=== PATIENT | male | born 1995 ===

== ENCOUNTER 2020-05-27 19:37 | Emergency (ER) | payer SELFPAY ==
[~2020-05-27] VITALS: Ht 165 cm; Wt 74.8 kg
[2020-05-27] MEDS ORDERED: TETANUS,DIPTH,PERTUSS P/F (BOOSTRIX) 0.5 ML VIAL IM ONE (19:43)
[2020-05-27 19:45] VITALS: BP 119/79
[2020-05-27] MEDS: TETANUS,DIPTH,PERTUSS P/F (BOOSTRIX) 0.5 ML VIAL IM ONE ×2 (19:50→20:00)
--- NOTE | 2020-05-27 19:51 | NUR ---
PT REFUSED TETNUS SHOT.
--- NOTE | 2020-05-27 20:02 | ED Upper Extremity ---
General Chief Complaint: Laceration Stated Complaint: LEFT HAND LACERATION Source: patient Exam Limitations: no limitations History of Present Illness Date Seen by Provider: May 27, 2020 Time Seen by Provider: 19:59 Initial Comments To ER with a laceration to the dorsal aspect of the left hand from a knife at home just prior to arrival. He cannot recall his last tetanus vaccine but he does not want one. Onset: just prior to arrival Severity: mild Pain/Injury Location: left 2nd finger Modifying Factors: Worse With Movement Allergies and Home Medications Allergies Coded Allergies: No Known Drug Allergies (Unverified , 05/27/20) Patient Home Medication List Home Medication List Reviewed: Yes Review of Systems Constitutional: see HPI EENTM: see HPI Respiratory: no symptoms reported Cardiovascular: no symptoms reported Genitourinary: no symptoms reported Musculoskeletal: see HPI Skin: see HPI Past Unvwsdc-Ztposk-Pwsskj Hx Patient Social History Alcohol Use: Occasionally Uses Alcohol Beverage of Choice: Beer Recreational Drug Use: No Smoking Status: Light Tobacco Smoker Type Used: Cigarettes 2nd Hand Smoke Exposure: Yes Recent Hopitalizations: No Physical Abuse: No Sexual Abuse: No Mistreated: No Fear: No Seasonal Allergies Seasonal Allergies: No Past Medical History Surgeries: Yes (HERNIA) Respiratory: No Cardiac: No Neurological: No Genitourinary: No Gastrointestinal: No Musculoskeletal: No Endocrine: No HEENT: No Cancer: No Psychosocial: No Integumentary: No Blood Disorders: No Physical Exam Vital Signs Capillary Refill : Less Than 3 Seconds Height, Weight, BMI Height: '" Weight: lbs. oz. kg; BMI Method: General Appearance: WD/WN, no apparent distress Respiratory: no respiratory distress, no accessory muscle use Shoulder: normal inspection, non-tender Elbow/Forearm: normal inspection, non-tender Wrist: Yes normal inspection, Yes non-tender Hand: Left, laceration (There is a 1 cm laceration with depth to the subcutaneous tissue to the dorsal aspect of the left hand over the second MCP joint. Normal sensation and extensor tendon function. This was anesthetized with 2 mL of 1% lidocaine without epinephrine and then scrubbed with chlorhexidine/saline solution then irrigated with the same, then sutured with 3 simple interrupted sutures size 5-0 Prolene.) Neurologic/Tendon: normal sensation, normal motor functions, normal tendon functions Neurologic/Psychiatric: alert, normal mood/affect, oriented x 3 Skin: normal color, warm/dry Progress/Results/Core Measures Results/Orders My Orders Orders - LIZABETH GHOSH APRN Dipht,Porfiriouss([facility]),Tet Adult ([facility] (05/27/20 20:00) Dipht,Leanne([facility]),Tet Adult ([facility] (05/27/20 19:43) Departure Impression Primary Impression: Hand laceration Disposition: 01 HOME, SELF-CARE Condition: Stable Departure-Patient Inst. Decision time for Depature: 20:01 Referrals: NO,LOCAL PHYSICIAN (PCP) Primary Care Physician Patient Instructions: Laceration Repair With Stitches (DC) Add. Discharge Instructions: Come back to ER in 7 8 or 9 days to have the stitches removed All discharge instructions reviewed with patient and/or family. Voiced understanding. LIZABETH GHOSH APRN May 27, 2020 20:02
== END 2020-05-27 20:06 | disposition home or self-care (01) ==
LOC: ER 19:41
DX: S61.211A Laceration without foreign body of left index finger without damage to nail, initial encounter (principal); Z77.22 Contact with and (suspected) exposure to environmental tobacco smoke (acute) (chronic); W26.0XXA Contact with knife, initial encounter
CPT/HCPCS: 90715; 99282